=== PATIENT | female | born 1945 ===

== ENCOUNTER 2019-01-17 07:00 | Day surgery (SDC) | payer OTHER ==
[~2019-01-17] VITALS: Ht 160 cm; Wt 79.8 kg
[~2019-01-17 07:00] MED LIST: CARTIA XT120 MG PO; CLONIDINE HCL0.1 M1 PO; COZAAR100 MG PO; METALOZONE PO
[2019-01-17] MEDS ORDERED: ROSUVASTATIN CAL5 MG PO (07:58)
[2019-01-17] MEDS ORDERED: METOLAZONE2.5 MG PO (07:58)
[2019-01-18] MEDS ORDERED: COLACE100 MG PO (10:56)
[2019-01-18] MEDS ORDERED: FLAGYL500MG PO (10:57)
== END 2019-01-18 08:00 | disposition home or self-care (01) ==
LOC: CIR.AMB 07:00 → O/R 09:00 → EDSTATUS 11:00 → O/R 11:00 → OB/GYN 11:30 → CIR.AMB 01-18 08:00 → O/R 01-18 12:04 → OB/GYN 01-18 12:04
DX: N81.3 Complete uterovaginal prolapse (principal); D25.1 Intramural leiomyoma of uterus; I11.9 Hypertensive heart disease without heart failure